=== PATIENT | female | born 1955 | race Caucasian/White ===

== ENCOUNTER → 2020-10-24 | Outpatient (CLI) | payer BC ==
[~2020-10-24] MED LIST: LOSA25 PO; MISO200; Prozac20 MG PO; ZOCOR20 MG PO
== END | disposition home or self-care (01) ==
LOC: LAB SHORT 08:39 → PLD 08:39
DX: D48.5 Neoplasm of uncertain behavior of skin (principal); D23.39 Other benign neoplasm of skin of other parts of face
CPT/HCPCS: 88305

== ENCOUNTER → 2020-10-24 | Outpatient (CLI) | payer BC | END | disposition home or self-care (01) | LOC: LAB 16:30 → LAB SHORT 16:30 | DX: R30.0 Dysuria (principal) | CPT/HCPCS: 87086 ==

== ENCOUNTER 2020-12-15 06:33 | Day surgery (SDC) | payer BC ==
[~2020-12-15] VITALS: Ht 170.2 cm; Wt 87.4 kg
--- NOTE | 2020-12-15 07:16 | NUR ---
History, Chart, Medications and Allergies reviewed before start of procedure. Lungs clear T/O to Auscultation. Patient confirms NPO status and agrees with scheduled surgery. Patient reports completing Chlorhexadine shower X2 prior to admission to hospital. Pre-Op teaching done. Pt verbalizes understanding.
--- NOTE | 2020-12-15 07:42 | NUR ---
PT GLASSES PLACE IN RECOVERY IN PLASTIC BAG WITH PT LABEL
--- NOTE | 2020-12-15 09:45 | NUR ---
PT LYING COMFORTABLY IN GURNY WITH EYES CLOSED. VSS. WILL CONTINUE TO MONITOR.
--- NOTE | 2020-12-15 12:03 | NUR ---
PT AMBULATED WITH STEADY GAIT TO RESTROOM. PT MEETS CRITERIA FOR D/C.
--- NOTE | 2020-12-15 12:16 | NUR ---
Patient up to Ambulate independently. Gait steady. Discharge instructions reviewed with patient. Patient verbalizes understanding. Copy given to patient to take home. Discharged via wheelchair to private car for ride home.
== END 2020-12-15 12:23 | disposition home or self-care (01) ==
LOC: ORSCMMR 06:33 → ORD 07:30 → ORSCSDS 09:30 → ORD 09:30 → ORSCMMR 09:30
PROVIDERS: Obstetrics & Gynecology
PROC: 0UDB8ZX Extraction of Endometrium, Via Natural or Artificial Opening Endoscopic, Diagnostic (ICD-10-PCS; principal; 2020-12-15 07:30)
DX: N95.0 Postmenopausal bleeding (principal); C54.1 Malignant neoplasm of endometrium; R10.2 Pelvic and perineal pain; D25.1 Intramural leiomyoma of uterus; I10 Essential (primary) hypertension; E78.5 Hyperlipidemia, unspecified; N18.2 Chronic kidney disease, stage 2 (mild); R73.03 Prediabetes; Z79.899 Other long term (current) drug therapy
CPT/HCPCS: 82947; 88305; A9270; J1100; J1885; J2210; J2250; J2370; J2405; J2704; J3010; J7120

== ENCOUNTER → 2021-07-11 | Outpatient (CLI) | payer BC | END | disposition home or self-care (01) | LOC: LAB SHORT 09:06 | DX: D48.5 Neoplasm of uncertain behavior of skin (principal) | CPT/HCPCS: 88305 ==

== ENCOUNTER 2021-10-04 08:44 | Day surgery (SDC) | payer BC ==
[~2021-10-04] VITALS: Ht 170.2 cm; Wt 85.2 kg
[~2021-10-04 08:44] MED LIST changes: +COENZYME Q-1050 MG PO; +Caltrate-600 W1 EACH PO; +MULVITA PO; +VITAMIN D5000 UNIT PO
--- NOTE | 2021-10-04 16:54 | NUR ---
PATIENT CURRENTLY LYING IN BED WITH NO SIGNS OR SYMPTOMS ACUTE DISTRESS NOTED. CALL LIGHT AND WATER IN EASY REACH. ABLE TO MAKE NEEDS AND WANTS KNOWN. PATIENT HAS BEEN UP TO THE BATHROOM, VOIDING WELL, NO COMPLAINTS OF NAUSEA, BOWEL SOUNDS PRESENT. PATIENT MEDICATED FOR PAIN PER ORDERS-SEE EMAR-MED WAS EFFECITE FOR PAIN CONTROL. PATIENT IS AWAKE AND ALERT. LAP SITES X 3 TO ABDOMEN WITH DERMABOND, NO DRAINAGE NOTED FROM INCISIONS. WILL CONTINUE TO MONITOR.
--- NOTE | 2021-10-05 06:24 | NUR ---
PT IS ALERT AND ORIENTED X4. BS PRESENT. PASSING GAS. UP WITH SBA. VOIDING. PAIN MED WERE GIVEN TWICE. PUNCTURE SITES ARE INTACT.
[2021-10-05] MEDS ORDERED: HYDR1TAB94 PO (08:30)
--- NOTE | 2021-10-05 13:39 | NUR ---
DISCHARGE: DISCHARGE INSTUCTIONS GIVEN TO PATIENT. PATIENT VERBALIZED UNDERSTANDING. PRESCRIPTION GIVEN TO PATIENT FOR PAIN MEDICATIONS. NO SIGNS OR SYMPTOMS ACUTE DISTRESS NOTED AT THIS TIME. AWAITING PATIENTS RIDE AT 1400
== END 2021-10-05 13:59 | disposition home or self-care (01) ==
LOC: ORSCMMR 08:44 → ORD 10:15 → ORSCMMR 10:15 → SURS 12:47 → ORSCMMR 10-05 11:51 → SURS 10-05 11:51 → ORSCMMR 10-05 13:59
PROVIDERS: Surgery
PROC: 8E0W4CZ Robotic Assisted Procedure of Trunk Region, Percutaneous Endoscopic Approach (ICD-10-PCS; principal; 2021-10-04 10:15)
PROC: 0YUA4JZ Supplement Bilateral Inguinal Region with Synthetic Substitute, Percutaneous Endoscopic Approach (ICD-10-PCS; principal; 2021-10-04 10:15)
DX: K40.20 Bilateral inguinal hernia, without obstruction or gangrene, not specified as recurrent (principal); I10 Essential (primary) hypertension; N18.30 Chronic kidney disease, stage 3 unspecified; Z79.899 Other long term (current) drug therapy
CPT/HCPCS: 49650; S2900; A9270; C1781; J0690; J1100; J1885; J2250; J2405; J2704; J3010; J7120

== ENCOUNTER → 2022-01-23 | Outpatient (CLI) | payer BC ==
[~2022-01-23] MED LIST changes: +HYDR1TAB94 PO
[2022-01-23 17:22] LABS: Source, Urine Clean Catch
[2022-01-23 20:26] LABS: Appearance, Urine Clear (Clear); Bilirubin, Urine Neg (Neg); Blood, Urine Neg (Neg); Color, Urine Yellow (P-Yellow); Glucose Qualitative, Urine Neg (Neg); Ketones, Urine 1+ (Neg); Leukocyte Esterase, Urine Neg (Neg); Nitrite, Urine Neg (Neg); Protein, Urine 2+ (Neg); Specific Gravity, Urine 1.025 (1.003-1.022); Urobilinogen, Urine 1+ (Normal)
[2022-01-23 20:35] LABS: Bacteria Few /hpf; Calcium Oxalate Crystals Few /hpf; Hyaline Casts 0-2 /lpf (0-2); Squamous Epithelial Cells Rare /hpf (Few); White Blood Cells, Urine 0-2 /hpf (0-5)
== END | disposition home or self-care (01) ==
LOC: LAB SHORT 15:51
PROVIDERS: Family Medicine
DX: R31.9 Hematuria, unspecified (principal)
CPT/HCPCS: 81015

== ENCOUNTER → 2022-02-22 | Outpatient (CLI) | payer BC | END | disposition home or self-care (01) | LOC: LAB 16:11 → LAB SHORT 16:11 | DX: R31.9 Hematuria, unspecified (principal) | CPT/HCPCS: 87077; 87086; 87186 ==

== ENCOUNTER → 2022-03-01 | Outpatient (CLI) | payer BC ==
[2022-03-01 17:49] LABS: Source, Urine Voided
[2022-03-01 19:03] LABS: Bacteria Few /hpf; Red Blood Cells, Urine 0-2 /hpf (0-2); Squamous Epithelial Cells Rare /hpf (Few)
== END | disposition home or self-care (01) ==
LOC: LAB SHORT 13:41
PROVIDERS: Family Medicine
DX: R30.0 Dysuria (principal)
CPT/HCPCS: 81015; 87086

== ENCOUNTER → 2022-05-24 | Outpatient (CLI) | payer MEDICARE, BC | END | disposition home or self-care (01) | LOC: PLD 15:02 → LAB SHORT 15:02 | DX: L57.0 Actinic keratosis (principal) | CPT/HCPCS: 88305 ==

== ENCOUNTER → 2022-09-24 | Outpatient (CLI) | payer MEDICARE, BC | LOC: LAB SHORT 09:09 → PLD 09:09 | DX: D48.5 Neoplasm of uncertain behavior of skin (principal) | CPT/HCPCS: 88305 ==

== ENCOUNTER 2022-12-30 10:10 | Emergency (ER) | payer BC, MEDICARE ==
[~2022-12-30] VITALS: Ht 170.2 cm; Wt 86.2 kg
[2022-12-30 10:39] LABS: Source, Urine Clean Catch
[2022-12-30 11:06] LABS: Bilirubin, Urine Neg (Neg); Blood, Urine 5+ (Neg); Glucose Qualitative, Urine Neg (Neg); Ketones, Urine 1+ (Neg); Leukocyte Esterase, Urine 3+ (Neg); Nitrite, Urine Pos (Neg); Protein, Urine 4+ (Neg); Urobilinogen, Urine NORM (Normal)
[2022-12-30 11:12] LABS: Appearance, Urine Bloody (Clear); Color, Urine Red (P-Yellow)
[2022-12-30 11:13] LABS: Red Blood Cells, Urine TNTC /hpf (0-2); Squamous Epithelial Cells Rare /hpf (Few); White Blood Cells, Urine TNTC /hpf (0-5)
[2022-12-30] MEDS ORDERED: Pyridium200 MG PO (11:25)
[2022-12-30] MEDS ORDERED: CEPH500 PO (11:25)
== END 2022-12-30 11:40 | disposition home or self-care (01) ==
LOC: ER 10:10
PROVIDERS: Emergency Medicine
DX: N39.0 Urinary tract infection, site not specified (principal); E78.5 Hyperlipidemia, unspecified; Z91.040 Latex allergy status; Z91.018 Allergy to other foods; Z91.048 Other nonmedicinal substance allergy status; Z79.899 Other long term (current) drug therapy
CPT/HCPCS: 81001; A9270

== ENCOUNTER → 2023-07-29 | Outpatient (CLI) | payer MEDICARE, BC ==
[~2023-07-29] MED LIST changes: +CEPH500 PO; +Pyridium200 MG PO
== END ==
LOC: LAB 17:25 → LAB SHORT 17:25
DX: R30.0 Dysuria (principal)
CPT/HCPCS: 87077; 87086; 87186

== ENCOUNTER 2024-08-11 14:00 | Day surgery (SDC) | payer MEDICARE, BC ==
[~2024-08-11] VITALS: Ht 170.2 cm; Wt 89.4 kg
[~2024-08-11 14:00] MED LIST changes: +ATOR20 PO; +CPAP; +Flonase 0.05% N16 GM; +Lactated Ringer's 1,000 ML IV ONE; +Lidocaine HCl/Pf 1% 5 ML VIAL ONE; +Methylene Blue 1% 100 MG/10 ML VIAL ONE; +propofoL 50 ML IV ONE
[2024-08-11] MEDS ORDERED: Lactated Ringer's 1,000 ML IV ONE (15:23)
[2024-08-11 16:51] VITALS: BP 137/83
== END 2024-08-11 16:50 | disposition home or self-care (01) ==
LOC: ORSCSDS 14:00
PROVIDERS: Surgery
PROC: 0DBL8ZX Excision of Transverse Colon, Via Natural or Artificial Opening Endoscopic, Diagnostic (ICD-10-PCS; principal; 2024-08-11 15:15)
PROC: 0DBK8ZX Excision of Ascending Colon, Via Natural or Artificial Opening Endoscopic, Diagnostic (ICD-10-PCS; principal; 2024-08-11 15:15)
DX: Z12.11 Encounter for screening for malignant neoplasm of colon (principal); D12.2 Benign neoplasm of ascending colon; D12.3 Benign neoplasm of transverse colon; Z86.0100 Personal history of colon polyps, unspecified; I12.9 Hypertensive chronic kidney disease with stage 1 through stage 4 chronic kidney disease, or unspecified chronic kidney disease; N18.2 Chronic kidney disease, stage 2 (mild); Z85.42 Personal history of malignant neoplasm of other parts of uterus; Z85.828 Personal history of other malignant neoplasm of skin; Z79.899 Other long term (current) drug therapy; K57.30 Diverticulosis of large intestine without perforation or abscess without bleeding
CPT/HCPCS: 88305; J2003; J2704; J7120; Q9968

== ENCOUNTER 2024-12-08 07:13 | Day surgery (SDC) | payer MEDICARE, BC ==
[~2024-12-08] VITALS: Ht 170.2 cm; Wt 95.2 kg
[~2024-12-08 07:13] MED LIST changes: +Bupivacaine 0.75% Inj 30 ML Vial ONE; -Lactated Ringer's 1,000 ML IV ONE; +Lidocaine 2%-Epineph 1:100000 20 ML MDV ONE; -Lidocaine HCl/Pf 1% 5 ML VIAL ONE; -Methylene Blue 1% 100 MG/10 ML VIAL ONE; +NS 500 ML IV ONE; -propofoL 50 ML IV ONE
[2024-12-08] MEDS ORDERED: NS 500 ML IV ONE ×2 (08:24)
--- NOTE | 2024-12-08 08:25 | NUR ---
12/08/24 0825 Jessica Davalos CALL LIGHT WITHIN REACH.
[2024-12-08] MEDS ORDERED: Midazolam HCl 1MG / ML 2ML Vial ONE (09:35)
[2024-12-08] MEDS ORDERED: propofoL 20 ML IV ONE (09:35)
[2024-12-08] MEDS ORDERED: Erythromycin 0.5% Opth Oint 1 gm ONE (09:38)
[2024-12-08] MEDS ORDERED: Dexamethasone Sod Phos 10 MG/ML 1ML VIAL ONE (09:50)
[2024-12-08 10:26] VITALS: BP 136/73
--- NOTE | 2024-12-08 11:12 | NUR ---
12/08/24 1112 Gwendolyn Lloyd REVIEWED DISCHARGE INSTRUCTIONS SEVERAL TIMES AND ANSWERED QUESTIONS. PT DENIES FURTHER QUESTIONS AT THIS TIME
== END 2024-12-08 11:02 | disposition home or self-care (01) ==
LOC: ORSCSDS 07:13
PROVIDERS: Ophthalmology
PROC: 080N0ZZ Alteration of Right Upper Eyelid, Open Approach (ICD-10-PCS; principal; 2024-12-08 09:00)
PROC: 080P0ZZ Alteration of Left Upper Eyelid, Open Approach (ICD-10-PCS; principal; 2024-12-08 09:00)
DX: H02.831 Dermatochalasis of right upper eyelid (principal); H02.834 Dermatochalasis of left upper eyelid; E78.00 Pure hypercholesterolemia, unspecified; I10 Essential (primary) hypertension; G47.33 Obstructive sleep apnea (adult) (pediatric); K21.9 Gastro-esophageal reflux disease without esophagitis; E66.9 Obesity, unspecified; Z68.32 Body mass index [BMI] 32.0-32.9, adult; Z79.899 Other long term (current) drug therapy
CPT/HCPCS: A9270; J1100; J2250; J2704; J7040